=== PATIENT | female | born 1945 | race Hispanic/Latino ===

== ENCOUNTER 2021-01-10 13:19 | Inpatient (IN) | payer MEDICARE ==
[~2021-01-10] VITALS: Ht 165.1 cm; Wt 77.6 kg
[2021-01-10 13:53] LABS: BASOPHILS % 0.4 % (0.0-1.0); EOSINOPHILS % 0.1 % (0.0-6.0); HEMATOCRIT 40.6 % (34.2-44.1); HEMOGLOBIN 12.6 g/dL (12.0-16.0); LYMPHOCYTES # (AUTO) 0.5 (1.0-3.2); LYMPHOCYTES % 6.7 % (18.0-39.1); MEAN CORPUSCULAR VOLUME 93.5 fL (81-99); MONOCYTES # (AUTO) 0.4 (0.2-0.8); MONOCYTES % 5.1 % (4.4-11.3); NEUTROPHILS # (AUTO) 6.6 (2.1-6.9); NEUTROPHILS % 86.4 % (38.7-80.0); PLATELET COUNT 172 x10e3/uL (140-360); RED BLOOD COUNT 4.34 x10e6/uL (3.6-5.1); RED CELL DISTRIBUTION WIDTH 13.8 % (11.7-14.4)
[2021-01-10 14:07] LABS: ALBUMIN 3.6 g/dL (3.5-5.0); ALBUMIN/GLOBULIN RATIO 1.2 (0.8-2.0); ANION GAP 14.8 mmol/L (8-16); CALCIUM 8.4 mg/dL (8.4-10.2); CREATININE, SERUM 1.12 mg/dL (0.57-1.11); POTASSIUM 3.8 mmol/L (3.5-5.1)
[2021-01-10] MEDS ORDERED: LISINOPRIL20 MG (14:42)
[2021-01-10] MEDS ORDERED: METOPROLOL SUCC50 MG (14:42)
[2021-01-10] MEDS ORDERED: LISINOPRIL40 MG (14:42)
[2021-01-10] MEDS ORDERED: WARFARIN SODIUM3 MG (14:42)
[2021-01-10] MEDS ORDERED: K DUR10 MEQ (14:42)
[2021-01-10] MEDS ORDERED: MINOXIDIL2.5 MG (14:42)
[2021-01-10] MEDS ORDERED: PIOGLITAZONE15 MG (14:42)
[2021-01-10] MEDS ORDERED: ATORVASTATIN CA40 MG (14:42)
[2021-01-10] MEDS ORDERED: FUROSEMIDE INJ 10 MG/ML 4 ML VIAL IV ONE (15:00)
[2021-01-10 15:25] LABS: INR 2.15; PROTHROMBIN TIME 24.7 seconds (11.9-14.5)
[2021-01-10] MEDS ORDERED: LABETALOL HCL 5 MG/ML 20ML VIAL IV STA ×2 (16:22→16:58)
[2021-01-10] MEDS ORDERED: LABETALOL HCL 20 ML ONE (16:38)
[2021-01-10] MEDS ORDERED: IOPAMIDOL 370 MG/ML 200 ML INFUS..BTL INJ ONE (17:55)
[2021-01-10] MEDS ORDERED: SODIUM CHLORIDE 0.9% 50ML 50 ML ONE (17:55)
[2021-01-10] MEDS ORDERED: DEXTROSE 50% SYRINGE 50 ML IV PRN (19:45)
[2021-01-10] MEDS ORDERED: HEPARIN SOD (PORCINE) 5,000 UNIT/ML VIAL SC SCH (21:00)
[2021-01-10] MEDS: INSULIN LISPRO 100 UNIT/1 ML 3ML VIAL SQ SCH (21:00)
[2021-01-10 21:35] VITALS: BP 161/103
[2021-01-10 21:40] VITALS: BP 161/103
[2021-01-10] MEDS: FUROSEMIDE INJ 10 MG/ML 4 ML VIAL IV SCH (21:58)
[2021-01-11] VITALS (9 sets, daily range): BP systolic 146–174; BP diastolic 90–113
[2021-01-11 00:43] LABS: CREATINE KINASE MB 1.1 ng/mL (0-5.0)
[2021-01-11 02:33] LABS: BASOPHILS % 0.3 % (0.0-1.0); EOSINOPHILS % 0.3 % (0.0-6.0); HEMATOCRIT 39.5 % (34.2-44.1); HEMOGLOBIN 12.6 g/dL (12.0-16.0); LYMPHOCYTES # (AUTO) 0.6 (1.0-3.2); LYMPHOCYTES % 9.9 % (18.0-39.1); MEAN CORPUSCULAR HEMOGLOBIN 29.1 pg (28-32); MEAN CORPUSCULAR HGB CONC 31.9 g/dL (31-35); MEAN CORPUSCULAR VOLUME 91.2 fL (81-99); MONOCYTES # (AUTO) 0.5 (0.2-0.8); NEUTROPHILS # (AUTO) 4.7 (2.1-6.9); NEUTROPHILS % 79.3 % (38.7-80.0); PLATELET COUNT 155 x10e3/uL (140-360); RED BLOOD COUNT 4.33 x10e6/uL (3.6-5.1); RED CELL DISTRIBUTION WIDTH 13.6 % (11.7-14.4)
[2021-01-11 02:52] LABS: ANION GAP 14.2 mmol/L (8-16); CALCIUM 8.2 mg/dL (8.4-10.2); CREATININE, SERUM 1.08 mg/dL (0.57-1.11); POTASSIUM 3.2 mmol/L (3.5-5.1)
[2021-01-11] MEDS ORDERED: METOPROLOL TARTRATE INJ 1 MG/ML VIAL IV ONE (07:15)
[2021-01-11] MEDS: INSULIN LISPRO 100 UNIT/1 ML 3ML VIAL SQ SCH ×4 (07:30→21:19)
[2021-01-11] MEDS ORDERED: METOPROLOL SUCCINATE 50 MG TAB XL PO SCH ×2 (07:45→09:00)
[2021-01-11 08:28] LABS: CREATINE KINASE MB 0.8 ng/mL (0-5.0)
[2021-01-11] MEDS: POTASSIUM CHLORIDE 10MEQ EA PO SCH ×2 (08:32→17:11)
[2021-01-11] MEDS: LOSARTAN POTASSIUM 25 MG TAB PO SCH ×3 (08:32→08:36)
[2021-01-11] MEDS: FUROSEMIDE INJ 10 MG/ML 4 ML VIAL IV SCH ×2 (08:34→21:20)
[2021-01-11 11:19] LABS: INR 1.73; PROTHROMBIN TIME 20.9 seconds (11.9-14.5)
[2021-01-11] MEDS: WARFARIN SOD 3 MG TAB PO SCH (17:11)
[2021-01-11] MEDS: METOPROLOL SUCCINATE 50 MG TAB XL PO SCH (18:27)
[2021-01-11] MEDS: ATORVASTATIN 20 MG TAB PO SCH (21:20)
[2021-01-11] MEDS ORDERED: MAGNESIUM SULFATE 2GM/50ML 50 ML IV ONE (21:45)
[2021-01-11] MEDS ORDERED: POTASSIUM CHLORIDE 10MEQ EA PO ONE (21:45)
[2021-01-11] MEDS ORDERED: SODIUM CHLORIDE 0.9% 50ML 50 ML ONE (21:56)
[2021-01-12] VITALS (7 sets, daily range): BP systolic 139–158; BP diastolic 95–119
[2021-01-12] MEDS ORDERED: MAGNESIUM SULFATE 2GM/50ML 50 ML IV ONE
[2021-01-12 06:11] LABS: BASOPHILS % 0.3 % (0.0-1.0); EOSINOPHILS % 0.3 % (0.0-6.0); HEMATOCRIT 41.6 % (34.2-44.1); HEMOGLOBIN 13.5 g/dL (12.0-16.0); LYMPHOCYTES # (AUTO) 0.9 (1.0-3.2); LYMPHOCYTES % 12.4 % (18.0-39.1); MEAN CORPUSCULAR HGB CONC 32.5 g/dL (31-35); MEAN CORPUSCULAR VOLUME 89.5 fL (81-99); MONOCYTES # (AUTO) 0.4 (0.2-0.8); NEUTROPHILS # (AUTO) 5.7 (2.1-6.9); NEUTROPHILS % 80.3 % (38.7-80.0); PLATELET COUNT 169 x10e3/uL (140-360); RED BLOOD COUNT 4.65 x10e6/uL (3.6-5.1); RED CELL DISTRIBUTION WIDTH 13.5 % (11.7-14.4)
[2021-01-12 06:30] LABS: INR 1.29; PROTHROMBIN TIME 16.6 seconds (11.9-14.5)
[2021-01-12 06:39] LABS: ANION GAP 17.4 mmol/L (8-16); CALCIUM 8.3 mg/dL (8.4-10.2); MAGNESIUM 3.4 MG/DL (1.3-2.1); POTASSIUM 3.4 mmol/L (3.5-5.1)
[2021-01-12 07:08] LABS: CREATININE, SERUM 0.95 mg/dL (0.57-1.11)
[2021-01-12] MEDS: INSULIN LISPRO 100 UNIT/1 ML 3ML VIAL SQ SCH ×4 (07:30→21:00)
[2021-01-12] MEDS ORDERED: BISACODYL 10 MG SUPP PR ONE (08:00)
[2021-01-12] MEDS ORDERED: POTASSIUM CHLORIDE 20 MEQ TAB CR PO ONE (09:30)
[2021-01-12] MEDS: LOSARTAN POTASSIUM 25 MG TAB PO SCH ×2 (09:55→21:00)
[2021-01-12] MEDS: FUROSEMIDE INJ 10 MG/ML 4 ML VIAL IV SCH ×2 (09:55→21:00)
[2021-01-12] MEDS: METOPROLOL SUCCINATE 50 MG TAB XL PO SCH ×2 (09:55→19:45)
[2021-01-12] MEDS: DOCUSATE SODIUM 100 MG CAP PO SCH ×3 (09:55→21:00)
[2021-01-12] MEDS: POLYETHYLENE GLYCOL 3350 17 GM PACK PO SCH ×2 (09:56→16:47)
[2021-01-12] MEDS: POTASSIUM CHLORIDE 10MEQ EA PO SCH ×2 (09:56→16:47)
[2021-01-12] MEDS: WARFARIN SOD 3 MG TAB PO SCH (16:47)
[2021-01-12] MEDS ORDERED: AMIODARONE HCL 360MG 200 ML IV SCH (19:45)
[2021-01-12] MEDS ORDERED: AMIODARONE 900MG 500 ML IV ONE (19:45)
[2021-01-12] MEDS ORDERED: AMIODARONE HCL 100 ML IV ONE (20:15)
[2021-01-12] MEDS: ATORVASTATIN 20 MG TAB PO SCH (21:00)
[2021-01-12] MEDS ORDERED: AMIODARONE 900MG 500 ML IV PRN (23:00)
[2021-01-13] VITALS (14 sets, daily range): BP systolic 112–166; BP diastolic 73–124
[2021-01-13] MEDS ORDERED: AMIODARONE HCL 360MG 200 ML IV SCH
[2021-01-13 05:45] LABS: BASOPHILS % 0.5 % (0.0-1.0); EOSINOPHILS % 0.5 % (0.0-6.0); HEMATOCRIT 43.5 % (34.2-44.1); HEMOGLOBIN 13.9 g/dL (12.0-16.0); LYMPHOCYTES # (AUTO) 1.4 (1.0-3.2); LYMPHOCYTES % 16.8 % (18.0-39.1); MEAN CORPUSCULAR HEMOGLOBIN 28.8 pg (28-32); MEAN CORPUSCULAR VOLUME 90.2 fL (81-99); MONOCYTES # (AUTO) 0.5 (0.2-0.8); MONOCYTES % 6.3 % (4.4-11.3); NEUTROPHILS # (AUTO) 6.1 (2.1-6.9); NEUTROPHILS % 75.2 % (38.7-80.0); PLATELET COUNT 164 x10e3/uL (140-360); RED BLOOD COUNT 4.82 x10e6/uL (3.6-5.1); RED CELL DISTRIBUTION WIDTH 13.3 % (11.7-14.4)
[2021-01-13 06:13] LABS: INR 1.26; PARTIAL THROMBOPLASTIN TIME 36.6 seconds (23.8-35.5); PROTHROMBIN TIME 16.3 seconds (11.9-14.5)
[2021-01-13 06:45] LABS: ALBUMIN 3.3 g/dL (3.5-5.0); ALBUMIN/GLOBULIN RATIO 0.9 (0.8-2.0); ANION GAP 15.4 mmol/L (8-16); CALCIUM 8.8 mg/dL (8.4-10.2); CHOL/HDL RATIO 2.3 (3.0-3.6); CREATININE, SERUM 1.23 mg/dL (0.57-1.11); MAGNESIUM 2.3 MG/DL (1.3-2.1); POTASSIUM 4.4 mmol/L (3.5-5.1)
[2021-01-13] MEDS: INSULIN LISPRO 100 UNIT/1 ML 3ML VIAL SQ SCH ×4 (07:30→20:51)
[2021-01-13 07:31] LABS: THYROID STIMULATING HORMONE 7.187 uIU/mL (0.350-4.940)
[2021-01-13] MEDS: FUROSEMIDE INJ 10 MG/ML 4 ML VIAL IV SCH ×2 (08:40→20:55)
[2021-01-13] MEDS: METOPROLOL SUCCINATE 50 MG TAB XL PO SCH ×2 (08:42→20:56)
[2021-01-13] MEDS: POLYETHYLENE GLYCOL 3350 17 GM PACK PO SCH ×2 (08:43→17:05)
[2021-01-13] MEDS: POTASSIUM CHLORIDE 10MEQ EA PO SCH ×2 (08:43→17:05)
[2021-01-13] MEDS: LOSARTAN POTASSIUM 25 MG TAB PO SCH ×3 (08:43→20:56)
[2021-01-13] MEDS: DOCUSATE SODIUM 100 MG CAP PO SCH ×3 (08:43→20:56)
[2021-01-13] MEDS ORDERED: LIDOCAINE HCL 2% LOCAL 20 ML VIAL ONE (09:20)
[2021-01-13] MEDS ORDERED: FENTANYL CITRATE/PF 100MCG/2 ML INJ ONE (09:20)
[2021-01-13] MEDS ORDERED: MIDAZOLAM HCL 2 MG/2 ML VIAL ONE (09:20)
[2021-01-13] MEDS ORDERED: SODIUM CHLORIDE 0.9% 1000ML 1,000 ML ONE (09:20)
[2021-01-13] MEDS ORDERED: IOPAMIDOL 370 MG/ML 200 ML INFUS..BTL INJ ONE (09:20)
[2021-01-13] MEDS ORDERED: HEPARIN SOD/SOD CHLORIDE 2,000 ML ONE (09:20)
[2021-01-13] MEDS: ASPIRIN 81 MG CHEW TAB PO SCH (12:42)
[2021-01-13] MEDS: HYDRALAZINE HCL 20 MG/ML VIAL IV PRN (12:42)
[2021-01-13] MEDS ORDERED: LOSARTAN POTASSIUM 25 MG TAB PO ONE (13:45)
[2021-01-13] MEDS: ATORVASTATIN 20 MG TAB PO SCH (20:57)
[2021-01-14] VITALS (14 sets, daily range): BP systolic 124–161; BP diastolic 85–116
[2021-01-14 04:57] LABS: BASOPHILS % 0.6 % (0.0-1.0); EOSINOPHILS # (AUTO) 0.1 (0.0-0.4); EOSINOPHILS % 1.3 % (0.0-6.0); HEMATOCRIT 42.8 % (34.2-44.1); HEMOGLOBIN 13.7 g/dL (12.0-16.0); LYMPHOCYTES # (AUTO) 0.9 (1.0-3.2); LYMPHOCYTES % 13.4 % (18.0-39.1); MEAN CORPUSCULAR HEMOGLOBIN 28.8 pg (28-32); MEAN CORPUSCULAR VOLUME 90.1 fL (81-99); MONOCYTES # (AUTO) 0.4 (0.2-0.8); MONOCYTES % 6.2 % (4.4-11.3); NEUTROPHILS # (AUTO) 5.4 (2.1-6.9); NEUTROPHILS % 77.8 % (38.7-80.0); PLATELET COUNT 152 x10e3/uL (140-360); RED BLOOD COUNT 4.75 x10e6/uL (3.6-5.1); RED CELL DISTRIBUTION WIDTH 13.4 % (11.7-14.4)
[2021-01-14 05:31] LABS: ALBUMIN 3.1 g/dL (3.5-5.0); ALBUMIN/GLOBULIN RATIO 0.9 (0.8-2.0); ANION GAP 17.8 mmol/L (8-16); CALCIUM 8.1 mg/dL (8.4-10.2); CHOL/HDL RATIO 3.1 (3.0-3.6); CREATININE, SERUM 1.11 mg/dL (0.57-1.11); POTASSIUM 3.8 mmol/L (3.5-5.1)
[2021-01-14] MEDS: INSULIN LISPRO 100 UNIT/1 ML 3ML VIAL SQ SCH ×4 (07:30→20:38)
[2021-01-14] MEDS: METOPROLOL SUCCINATE 50 MG TAB XL PO SCH ×2 (07:50→19:44)
[2021-01-14] MEDS: DOCUSATE SODIUM 100 MG CAP PO SCH ×4 (09:00→20:50)
[2021-01-14] MEDS: POLYETHYLENE GLYCOL 3350 17 GM PACK PO SCH ×2 (09:00→16:37)
[2021-01-14] MEDS: POTASSIUM CHLORIDE 10MEQ EA PO SCH ×2 (09:30→16:46)
[2021-01-14] MEDS: ASPIRIN 81 MG CHEW TAB PO SCH (09:30)
[2021-01-14] MEDS: LOSARTAN POTASSIUM 25 MG TAB PO SCH (09:30)
[2021-01-14] MEDS: FUROSEMIDE INJ 10 MG/ML 4 ML VIAL IV SCH ×2 (09:31→20:50)
[2021-01-14] MEDS ORDERED: AMLODIPINE BESYLATE 5 MG TAB PO SCH (11:00)
[2021-01-14] MEDS ORDERED: AMIODARONE HCL 200 MG TAB PO SCH (11:00)
[2021-01-14] MEDS: SACUBITRIL/VALSARTAN 1 EACH TABLET PO SCH ×2 (12:43→20:50)
[2021-01-14] MEDS: AMIODARONE HCL 200 MG TAB PO SCH (16:45)
[2021-01-14] MEDS: ATORVASTATIN 20 MG TAB PO SCH (20:50)
[2021-01-14] MEDS ORDERED: ENOXAPARIN INJ 80 MG/0.8 ML SYR SC SCH (21:00)
[2021-01-15] VITALS (12 sets, daily range): BP systolic 112–149; BP diastolic 74–116
[2021-01-15] MEDS: HYDRALAZINE HCL 20 MG/ML VIAL IV PRN (03:41)
[2021-01-15] MEDS: INSULIN LISPRO 100 UNIT/1 ML 3ML VIAL SQ SCH ×4 (07:48→21:00)
[2021-01-15] MEDS: METOPROLOL SUCCINATE 50 MG TAB XL PO SCH ×2 (07:58→20:17)
[2021-01-15] MEDS: DOCUSATE SODIUM 100 MG CAP PO SCH ×3 (08:26→21:07)
[2021-01-15] MEDS: ASPIRIN 81 MG CHEW TAB PO SCH (08:26)
[2021-01-15] MEDS: AMIODARONE HCL 200 MG TAB PO SCH ×2 (08:26→17:18)
[2021-01-15] MEDS: SACUBITRIL/VALSARTAN 1 EACH TABLET PO SCH ×2 (08:26→21:41)
[2021-01-15] MEDS: FUROSEMIDE INJ 10 MG/ML 4 ML VIAL IV SCH ×2 (08:26→23:41)
[2021-01-15] MEDS: POTASSIUM CHLORIDE 10MEQ EA PO SCH ×2 (08:27→17:19)
[2021-01-15] MEDS: POLYETHYLENE GLYCOL 3350 17 GM PACK PO SCH ×2 (08:29→17:00)
[2021-01-15 10:12] LABS: BASOPHILS # (AUTO) 0.1 (0.0-0.1); BASOPHILS % 0.5 % (0.0-1.0); EOSINOPHILS # (AUTO) 0.1 (0.0-0.4); EOSINOPHILS % 0.6 % (0.0-6.0); HEMATOCRIT 52.4 % (34.2-44.1); HEMOGLOBIN 16.9 g/dL (12.0-16.0); LYMPHOCYTES # (AUTO) 1.6 (1.0-3.2); LYMPHOCYTES % 14.9 % (18.0-39.1); MEAN CORPUSCULAR HEMOGLOBIN 28.8 pg (28-32); MEAN CORPUSCULAR HGB CONC 32.3 g/dL (31-35); MEAN CORPUSCULAR VOLUME 89.4 fL (81-99); MONOCYTES # (AUTO) 0.6 (0.2-0.8); MONOCYTES % 5.8 % (4.4-11.3); NEUTROPHILS # (AUTO) 8.1 (2.1-6.9); NEUTROPHILS % 77.6 % (38.7-80.0); PLATELET COUNT 193 x10e3/uL (140-360); RED BLOOD COUNT 5.86 x10e6/uL (3.6-5.1); RED CELL DISTRIBUTION WIDTH 13.1 % (11.7-14.4)
[2021-01-15 10:22] LABS: ALBUMIN 3.2 g/dL (3.5-5.0); ALBUMIN/GLOBULIN RATIO 0.8 (0.8-2.0); CALCIUM 8.9 mg/dL (8.4-10.2); CREATININE, SERUM 1.32 mg/dL (0.57-1.11)
[2021-01-15] MEDS: ATORVASTATIN 20 MG TAB PO SCH (21:07)
[2021-01-16] VITALS (26 sets, daily range): BP systolic 107–167; BP diastolic 75–107
[2021-01-16 05:02] LABS: BASOPHILS % 0.4 % (0.0-1.0); EOSINOPHILS # (AUTO) 0.1 (0.0-0.4); EOSINOPHILS % 1.3 % (0.0-6.0); HEMATOCRIT 47.9 % (34.2-44.1); HEMOGLOBIN 15.4 g/dL (12.0-16.0); LYMPHOCYTES # (AUTO) 1.1 (1.0-3.2); LYMPHOCYTES % 12.9 % (18.0-39.1); MEAN CORPUSCULAR HEMOGLOBIN 28.9 pg (28-32); MEAN CORPUSCULAR HGB CONC 32.2 g/dL (31-35); MONOCYTES # (AUTO) 0.6 (0.2-0.8); MONOCYTES % 6.7 % (4.4-11.3); NEUTROPHILS # (AUTO) 6.5 (2.1-6.9); NEUTROPHILS % 77.9 % (38.7-80.0); PLATELET COUNT 165 x10e3/uL (140-360); RED BLOOD COUNT 5.32 x10e6/uL (3.6-5.1); RED CELL DISTRIBUTION WIDTH 13.2 % (11.7-14.4)
[2021-01-16 05:40] LABS: ALBUMIN 2.9 g/dL (3.5-5.0); ALBUMIN/GLOBULIN RATIO 0.8 (0.8-2.0); ANION GAP 15.5 mmol/L (8-16); CALCIUM 8.6 mg/dL (8.4-10.2); CREATININE, SERUM 1.1 mg/dL (0.57-1.11); MAGNESIUM 1.9 MG/DL (1.3-2.1); POTASSIUM 3.5 mmol/L (3.5-5.1)
[2021-01-16 06:16] LABS: FREE T4 (FREE THYROXINE) 1.13 ng/dL (0.8-1.8)
[2021-01-16] MEDS: PANTOPRAZOLE SOD 40 MG TABEC PO SCH (08:08)
[2021-01-16] MEDS: METOPROLOL SUCCINATE 50 MG TAB XL PO SCH ×2 (08:09→21:00)
[2021-01-16] MEDS: POLYETHYLENE GLYCOL 3350 17 GM PACK PO SCH ×2 (08:09→15:41)
[2021-01-16] MEDS: POTASSIUM CHLORIDE 10MEQ EA PO SCH ×2 (08:09→16:18)
[2021-01-16] MEDS: AMIODARONE HCL 200 MG TAB PO SCH ×2 (08:09→16:18)
[2021-01-16] MEDS: ENOXAPARIN INJ 80 MG/0.8 ML SYR SC SCH ×2 (08:09→21:00)
[2021-01-16] MEDS: ASPIRIN 81 MG CHEW TAB PO SCH (08:09)
[2021-01-16] MEDS: DOCUSATE SODIUM 100 MG CAP PO SCH ×3 (08:09→21:00)
[2021-01-16] MEDS: INSULIN LISPRO 100 UNIT/1 ML 3ML VIAL SQ SCH ×4 (08:14→21:00)
[2021-01-16] MEDS: SACUBITRIL/VALSARTAN 1 EACH TABLET PO SCH ×2 (08:19→21:00)
[2021-01-16] MEDS: FUROSEMIDE INJ 10 MG/ML 4 ML VIAL IV SCH (12:01)
[2021-01-16] MEDS ORDERED: POTASSIUM CHLORIDE 20 MEQ TAB CR PO ONE (14:00)
[2021-01-16] MEDS ORDERED: MAGNESIUM SULFATE 2GM/50ML 50 ML IV ONE (14:00)
[2021-01-16] MEDS ORDERED: WARFARIN SOD 3 MG TAB PO SCH (17:00)
[2021-01-16] MEDS: ATORVASTATIN 20 MG TAB PO SCH (21:00)
[2021-01-17] VITALS (19 sets, daily range): BP systolic 126–184; BP diastolic 85–121
[2021-01-17 05:03] LABS: BASOPHILS # (AUTO) 0.1 (0.0-0.1); BASOPHILS % 0.7 % (0.0-1.0); EOSINOPHILS # (AUTO) 0.1 (0.0-0.4); EOSINOPHILS % 1.2 % (0.0-6.0); HEMATOCRIT 46.4 % (34.2-44.1); HEMOGLOBIN 14.8 g/dL (12.0-16.0); LYMPHOCYTES # (AUTO) 1.1 (1.0-3.2); LYMPHOCYTES % 14.7 % (18.0-39.1); MEAN CORPUSCULAR HGB CONC 31.9 g/dL (31-35); MONOCYTES # (AUTO) 0.6 (0.2-0.8); MONOCYTES % 8.3 % (4.4-11.3); NEUTROPHILS # (AUTO) 5.7 (2.1-6.9); NEUTROPHILS % 74.3 % (38.7-80.0); PLATELET COUNT 159 x10e3/uL (140-360); RED CELL DISTRIBUTION WIDTH 13.2 % (11.7-14.4)
[2021-01-17 05:15] LABS: INR 1.26; PROTHROMBIN TIME 16.3 seconds (11.9-14.5)
[2021-01-17 05:40] LABS: ALBUMIN 2.8 g/dL (3.5-5.0); ALBUMIN/GLOBULIN RATIO 0.8 (0.8-2.0); ANION GAP 15.1 mmol/L (8-16); CALCIUM 8.6 mg/dL (8.4-10.2); POTASSIUM 4.1 mmol/L (3.5-5.1)
[2021-01-17] MEDS: INSULIN LISPRO 100 UNIT/1 ML 3ML VIAL SQ SCH ×4 (07:30→21:28)
[2021-01-17] MEDS: PANTOPRAZOLE SOD 40 MG TABEC PO SCH (08:06)
[2021-01-17] MEDS: POTASSIUM CHLORIDE 10MEQ EA PO SCH ×2 (08:07→17:20)
[2021-01-17] MEDS: DOCUSATE SODIUM 100 MG CAP PO SCH ×3 (08:07→21:01)
[2021-01-17] MEDS: ASPIRIN 81 MG CHEW TAB PO SCH (08:07)
[2021-01-17] MEDS: AMIODARONE HCL 200 MG TAB PO SCH ×2 (08:07→17:19)
[2021-01-17] MEDS: METOPROLOL SUCCINATE 50 MG TAB XL PO SCH ×2 (08:07→21:01)
[2021-01-17] MEDS: SACUBITRIL/VALSARTAN 1 EACH TABLET PO SCH ×2 (08:07→21:01)
[2021-01-17] MEDS: FUROSEMIDE 40 MG TAB PO SCH (08:08)
[2021-01-17] MEDS: POLYETHYLENE GLYCOL 3350 17 GM PACK PO SCH ×2 (08:17→17:20)
[2021-01-17] MEDS: ENOXAPARIN INJ 80 MG/0.8 ML SYR SC SCH ×2 (08:17→21:02)
[2021-01-17] MEDS ORDERED: WARFARIN SOD 2 MG TAB PO SCH (17:00)
[2021-01-17] MEDS: ATORVASTATIN 20 MG TAB PO SCH (21:01)
[2021-01-18] VITALS: BP 133/88
[2021-01-18 04:00] VITALS: BP 140/108
[2021-01-18 06:48] LABS: BASOPHILS # (AUTO) 0.1 (0.0-0.1); BASOPHILS % 0.8 % (0.0-1.0); EOSINOPHILS # (AUTO) 0.1 (0.0-0.4); EOSINOPHILS % 1.1 % (0.0-6.0); HEMATOCRIT 44.9 % (34.2-44.1); HEMOGLOBIN 14.1 g/dL (12.0-16.0); LYMPHOCYTES # (AUTO) 1.2 (1.0-3.2); LYMPHOCYTES % 15.9 % (18.0-39.1); MEAN CORPUSCULAR HEMOGLOBIN 28.6 pg (28-32); MEAN CORPUSCULAR HGB CONC 31.4 g/dL (31-35); MEAN CORPUSCULAR VOLUME 91.1 fL (81-99); MONOCYTES # (AUTO) 0.5 (0.2-0.8); MONOCYTES % 7.3 % (4.4-11.3); NEUTROPHILS # (AUTO) 5.4 (2.1-6.9); NEUTROPHILS % 74.1 % (38.7-80.0); PLATELET COUNT 178 x10e3/uL (140-360); RED BLOOD COUNT 4.93 x10e6/uL (3.6-5.1); RED CELL DISTRIBUTION WIDTH 13.2 % (11.7-14.4)
[2021-01-18] MEDS: METOPROLOL SUCCINATE 50 MG TAB XL PO SCH (07:22)
[2021-01-18 07:26] LABS: ALBUMIN 2.7 g/dL (3.5-5.0); ALBUMIN/GLOBULIN RATIO 0.8 (0.8-2.0); ANION GAP 13.2 mmol/L (8-16); CALCIUM 8.2 mg/dL (8.4-10.2); CREATININE, SERUM 0.91 mg/dL (0.57-1.11); POTASSIUM 4.2 mmol/L (3.5-5.1)
[2021-01-18] MEDS: INSULIN LISPRO 100 UNIT/1 ML 3ML VIAL SQ SCH ×2 (07:30→12:30)
[2021-01-18 07:50] VITALS: BP 141/87
[2021-01-18 08:20] VITALS: BP 141/87
[2021-01-18] MEDS: DOCUSATE SODIUM 100 MG CAP PO SCH (09:54)
[2021-01-18] MEDS: ASPIRIN 81 MG CHEW TAB PO SCH (09:54)
[2021-01-18] MEDS: PANTOPRAZOLE SOD 40 MG TABEC PO SCH (09:54)
[2021-01-18] MEDS: AMIODARONE HCL 200 MG TAB PO SCH (09:54)
[2021-01-18] MEDS: SACUBITRIL/VALSARTAN 1 EACH TABLET PO SCH (09:55)
[2021-01-18] MEDS: POTASSIUM CHLORIDE 10MEQ EA PO SCH (09:55)
[2021-01-18] MEDS: FUROSEMIDE 40 MG TAB PO SCH (09:55)
[2021-01-18] MEDS: POLYETHYLENE GLYCOL 3350 17 GM PACK PO SCH (09:56)
[2021-01-18] MEDS: ENOXAPARIN INJ 80 MG/0.8 ML SYR SC SCH (09:56)
[2021-01-18 10:50] LABS: INR 1.41; PROTHROMBIN TIME 17.8 seconds (11.9-14.5)
[2021-01-18 11:25] VITALS: BP 144/95
[2021-01-18] MEDS ORDERED: ASPIRIN CHEW81 MG PO (11:33)
[2021-01-18] MEDS ORDERED: AMIODARONE HCL200 MG PO (11:33)
[2021-01-18] MEDS ORDERED: LASIX20 MG PO (11:33)
[2021-01-18] MEDS ORDERED: TOPROL XL50 MG PO (11:33)
[2021-01-18] MEDS ORDERED: LIPITOR20 MG PO (11:33)
[2021-01-18] MEDS ORDERED: ENTRESTO 49 MG1 EACH PO (11:33)
[2021-01-18] MEDS ORDERED: LOVENOX80 MG/0.8 SC (11:33)
[2021-01-18] MEDS ORDERED: WARFARIN SODIUM4 MG PO (11:33)
[2021-01-18] MEDS ORDERED: K-DUR10 MEQ PO (12:48)
== END 2021-01-18 16:07 | disposition home or self-care (01) | DRG 286 ==
LOC: ER 13:33 → ERHOLD 16:06 → IMCU 20:45 → MED/SURG 01-11 08:52 → MED/SURG2 01-12 20:05 → IMCU 01-12 20:20 → ICU 01-15 10:30 → MED/SURG 01-17 15:43
PROVIDERS: ADMIT Internal Medicine; ATTEND Internal Medicine
PROC: 4A023N7 Measurement of Cardiac Sampling and Pressure, Left Heart, Percutaneous Approach (ICD-10-PCS; principal; 2021-01-13)
PROC: B2111ZZ Fluoroscopy of Multiple Coronary Arteries using Low Osmolar Contrast (ICD-10-PCS; 2021-01-13)
PROC: B2151ZZ Fluoroscopy of Left Heart using Low Osmolar Contrast (ICD-10-PCS; 2021-01-13)
DX: I13.0 Hypertensive heart and chronic kidney disease with heart failure and stage 1 through stage 4 chronic kidney disease, or unspecified chronic kidney disease (principal); I50.23 Acute on chronic systolic (congestive) heart failure; I47.2 Ventricular tachycardia; I48.19 Other persistent atrial fibrillation; I69.351 Hemiplegia and hemiparesis following cerebral infarction affecting right dominant side; E87.3 Alkalosis; I24.9 Acute ischemic heart disease, unspecified; N18.30 Chronic kidney disease, stage 3 unspecified; E11.22 Type 2 diabetes mellitus with diabetic chronic kidney disease; Z79.899 Other long term (current) drug therapy; Z79.01 Long term (current) use of anticoagulants; I25.5 Ischemic cardiomyopathy; E66.01 Morbid (severe) obesity due to excess calories; Z68.28 Body mass index [BMI] 28.0-28.9, adult; Z20.822 Contact with and (suspected) exposure to COVID-19; I25.10 Atherosclerotic heart disease of native coronary artery without angina pectoris; E83.39 Other disorders of phosphorus metabolism; E78.5 Hyperlipidemia, unspecified
CPT/HCPCS: 36415; 51700; 71045; 71260; 80048; 80053; 80061; 82550; 82553; 82948; 83036; 83735; 83880; 84100; 84439; 84443; 84481; 84484; 85025; 85610; 85730; 93005; 93306; 93458; 93970; 93971; 96360; 96372; 97139; 99152; 99285; C1760; C1887; J0360; J1644; J1650; J1940; J2001; J2250; J3010; J3475; J7030; Q9967; U0002